=== PATIENT | female | born 1995 | race African-American/Black ===

== ENCOUNTER 2019-12-07 21:20 | Emergency (ER) | payer OTHER ==
[~2019-12-07] VITALS: Ht 170.2 cm; Wt 71.2 kg
[2019-12-07 21:34] VITALS: Ht 170.2 cm; Wt 71.2 kg
[2019-12-08 00:41] VITALS: BP 146/86
== END 2019-12-08 00:42 | disposition home or self-care (01) ==
LOC: ED 21:20
DX: R07.89 Other chest pain (principal)
CPT/HCPCS: J1885